=== PATIENT | female | born 1985 | race African-American/Black ===

== ENCOUNTER 2016-11-24 08:12 | Emergency (ER) | payer BC ==
[2016-11-24] MEDS ORDERED: ALBUTEROL SO4 2.5/IPRATROPIUM 0.5 INH SOL 3 ML VIAL.NEB. NEB ONE ×4 (08:17→08:35)
[2016-11-24 08:19] VITALS: BP 123/97; TEMP 98.5; BMI 33.6
[2016-11-24] MEDS ORDERED: ALBUTEROL SO4 0.083% IH SOL 2.5 MG/3 ML VIAL.NEB. NEB PRN (08:23)
[2016-11-24] MEDS ORDERED: methylPREDNISolone NA SUCC 125 MG/2 ML VIAL IVPB ONE (08:23)
--- NOTE | 2016-11-24 08:23 | PDOC ---
History of Present Illness <Gwen Emerson - Last Filed: 11/24/16 10:26> - General History Source: Patient Exam Limitations: No Limitations - History of Present Illness Initial Comments: 11/24/16 10:08 The patient is a 31 year old female, with significant past medical history of asthma (on 10mg of Singulair daily, intubated once at 4yo), Gerald parkinson white syndrome s/p ablation, who presents to the emergency room this morning complaining of shortness of breath, chest tightness, and productive cough x3 days. The patient used her inhaler this morning when she began feeling short of breath with minimal improvement. She has not used any nebulizer treatments. She notes that she has had a productive cough with green sputum, chills, and sweats over the past 3 days which she believes triggered the exacerbation this morning. The patient was hospitalized 3 times in the past for asthma exacerbation, with the most recent admission in March that was triggered by the Flu. 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 Denies fever, nausea, vomiting. Denies palpitations. Denies lightheadedness, dizziness. Allergies: NKDA, shellfish, egg Social Hx: No tobacco use. No recreational drug use. No alcohol use. Pt is followed by a claims adjuster at [facility]. <Beverly Barnes - Last Filed: 11/24/16 10:37> - General Chief Complaint: Asthma Stated Complaint: ASTHMA Time Seen by Provider: 11/24/16 08:21 Past History - Past Medical History Asthma: Yes Cardiac Disorders: Yes (WPW) Seizures: Yes - Surgical History Cardiac Surgery: Yes (ABLATION D/T WPW) - Suicide/Smoking/Psychosocial Hx Smoking History: Never smoked Have you smoked in the past 12 months: No Information on smoking cessation initiated: No Hx Alcohol Use: No Drug/Substance Use Hx: No Substance Use Type: None Hx Substance Use Treatment: No <Gwen Emerson - Last Filed: 11/24/16 10:26> <Beverly Barnes - Last Filed: 11/24/16 10:37> - Past Medical History Allergies/Adverse Reactions: Allergies Allergy/AdvReac Type Severity Reaction Status Date / Time egg Allergy Severe Verified 11/24/16 08:15 No Known Drug Allergies Allergy Verified 11/24/16 08:15 shellfish Allergy Severe anaphylaxis Uncoded 11/24/16 08:15 Review of Systems - Review of Systems Able to Perform ROS?: Yes Comments:: 11/24/16 10:09 GENERAL/CONSTITUTIONAL: +chills, +sweats. No weakness. HEAD, EYES, EARS, NOSE AND THROAT: No change in vision. No ear pain or discharge. No sore throat. GASTROINTESTINAL: No nausea, vomiting, diarrhea or constipation. GENITOURINARY: No dysuria, frequency, or change in urination. CARDIOVASCULAR: No palpitations RESPIRATORY: +SOB, +chest tightness, +productive cough, +wheezing. No hemoptysis. MUSCULOSKELETAL: No joint or muscle swelling or pain. No neck or back pain. SKIN: No rash NEUROLOGIC: No headache, vertigo, loss of consciousness, or change in strength/ sensation. ENDOCRINE: No increased thirst. No abnormal weight change. HEMATOLOGIC/LYMPHATIC: No anemia, easy bleeding, or history of blood clots. ALLERGIC/IMMUNOLOGIC: No hives or skin allergy. <Beverly Barnes - Last Filed: 11/24/16 10:37> *Physical Exam - Vital Signs Last Vital Signs Temp Pulse Resp BP Pulse Ox 98.5 F 119 H 18 123/97 99 11/24/16 08:14 11/24/16 08:14 11/24/16 08:14 11/24/16 08:14 11/24/16 08:14 <Gwen Emerson - Last Filed: 11/24/16 10:26> - Vital Signs Last Vital Signs Temp Pulse Resp BP Pulse Ox 98.5 F 119 H 18 123/97 99 11/24/16 08:14 11/24/16 08:14 11/24/16 08:14 11/24/16 08:14 11/24/16 08:14 - Physical Exam Comments: 11/24/16 10:10 GENERAL: Awake, alert, and fully oriented, in no acute distress HEAD: No signs of trauma EYES: PERRLA, EOMI, sclera anicteric, conjunctiva clear ENT: Auricles normal inspection, hearing grossly normal, nares patent, oropharynx clear without exudates. Moist mucosa NECK: Normal ROM, supple, no lymphadenopathy, JVD, or masses LUNGS: +diffuse wheezing bilaterally with fair air movement. +Tachypneic to 30. No crackles HEART: Regular rate and rhythm, normal S1 and S2, no murmurs, rubs or gallops ABDOMEN: Soft, nontender, normoactive bowel sounds. No guarding, no rebound. No masses EXTREMITIES: Normal range of motion, no edema. No clubbing or cyanosis. No cords, erythema, or tenderness BACK: No midline spinal tenderness in cervical/thoracic/lumbar region NEUROLOGICAL: Normal speech, cranial nerves intact, negative pronator drift, 5/ 5 strength in all 4 extremities, normal sensation to light touch in all 4 extremities, normal cerebellar exam, normal gait, normal reflexes and tone SKIN: Warm, Dry, normal turgor, no rashes or lesions noted. <Beverly Barnes - Last Filed: 11/24/16 10:37> ED Treatment Course - LABORATORY CBC & Chemistry Diagram: 11/24/16 08:43 11/24/16 08:43 - Medications Given in the ED: ED Medications Discontinued Medications Generic Name Dose Route Start Last Admin Trade Name [place] PRN Reason Stop Dose Admin Albuterol/Ipratropium 2 amp 11/24/16 08:21 11/24/16 08:22 Duoneb - NEB 11/24/16 08:22 2 amp NOW ONE Administration <Gwen Emerson - Last Filed: 11/24/16 10:26> - LABORATORY CBC & Chemistry Diagram: 11/24/16 08:43 11/24/16 08:43 - ADDITIONAL ORDERS Additional order review: Laboratory Results 11/24/16 11/24/16 08:51 08:43 Sodium 141 Potassium 3.9 Chloride 106 Carbon Dioxide 24 Anion Gap 11 BUN 7 D Creatinine 0.9 D Creat Clearance w eGFR > 60 Random Glucose 135 H D Calcium 8.8 Total Bilirubin 0.4 AST 15 ALT 21 Alkaline Phosphatase 90 Total Protein 7.5 Albumin 3.8 Urine HCG, Qual Negative 11/24/16 08:43 RBC 4.93 D MCV 85.1 MCHC 33.6 RDW 12.9 MPV 8.6 Neutrophils % 41.6 L Lymphocytes % 41.1 H D Monocytes % 7.6 Eosinophils % 8.3 H Basophils % 1.4 - RADIOLOGY Radiograph Interpretation: 11/24/16 10:36 EXAM#: TYPE/EXAM: RESULT: [id number] RAD/CHEST PA LAT CHEST 2 VIEWS. History. Evaluate for infiltrate Comparison study: November 04, 2005 Findings. The trachea is normal in size and is not deviated. Unremarkable contour of the cardiomediastinal silhouette. The lungs are well aerated. No evidence of airspace opacities, atelectasis, pleural effusion, or pneumothorax. No bulky hilar adenopathy is noted. Intact visualized osseous structures Intact visualized osseous structures Impression. No evidence of active pulmonary disease. Reported By: Saeid Alberto MD 11/24/16 1024 - Medications Given in the ED: ED Medications Discontinued Medications Generic Name Dose Route Start Last Admin Trade Name Freq PRN Reason Stop Dose Admin Albuterol Sulfate 1 amp 11/24/16 08:23 11/24/16 09:27 Ventolin 0.083% Nebulizer Soln - NEB 11/24/16 08:54 1 amp Q15M PRN Administration Dyspnea Albuterol/Ipratropium 2 amp 11/24/16 08:21 11/24/16 08:22 Duoneb - NEB 11/24/16 08:22 2 amp NOW ONE Administration Albuterol/Ipratropium 1 amp 11/24/16 08:23 11/24/16 08:48 Duoneb - NEB 11/24/16 08:24 1 amp ONCE ONE Administration Methylprednisolone Sodium Succinate 125 mg 11/24/16 08:23 11/24/16 08:48 Solu-Medrol - IVPB 11/24/16 08:24 125 mg ONCE ONE Administration <Beverly Barnes - Last Filed: 11/24/16 10:37> Medical Decision Making - Medical Decision Making 11/24/16 09:26 31yo F hx asthma p/w asthma exacerbation in the setting of URI vs PNA. Initial exam with peak flow of 140, diffuse wheezing, tachypnea to 30, and fair air movement. Will dose back to back nebs and steroids and reassess. -labs -UPT -CXR -reassess 11/24/16 10:31 Repeat peak flow 310. Pt feels much better, denies SOB or chest tightness. CXR negative. Flu swab negative. Repeat exam with no wheezing and good air movement. Repeat vitals: HR 95, SPO2 RA 98%, RR 20, BP 128/78. I discussed the physical exam findings, ancillary test results and final diagnoses with the patient. I answered all of the patient's questions. The patient was satisfied with the care received and felt comfortable with the discharge plan and treatment plan. The patient will call their primary care physician within 24 hours to arrange follow-up and will return to the Emergency Department with any new, persistent or worsening symptoms. <Gwen Emerson - Last Filed: 11/24/16 10:26> *DC/Admit/Observation/Transfer - Discharge Dispostion Admit: No - Attestations Physician Attestion: 11/24/16 10:35 I, Dr. Gwen Emerson MD, attest that this document has been prepared under my direction and personally reviewed by me in its entirety. I further attest, that it accurately reflects all work, treatment, procedures and medical decision -making performed by me. <Gwen Emerson - Last Filed: 11/24/16 10:26> - Attestations Scribe Attestion: 11/24/16 10:10 Documentation prepared by MARLON Covarrubias, acting as biomedical field service engineer for Gwen Emerson MD. <Beverly Barnes - Last Filed: 11/24/16 10:37> Diagnosis at time of Disposition: Asthma Qualifiers: Asthma severity: unspecified severity Asthma complication type: uncomplicated Qualified Code(s): J45.909 - Unspecified asthma, uncomplicated - Discharge Dispostion Disposition: HOME Condition at time of disposition: Stable - Patient Instructions Printed Discharge Instructions: Asthma -- Adult Additional Instructions: Please use your nebulizer machine every 2 hours as needed for asthma symptoms. Please see your primary care doctor within 1 week. Return to the emergency department immediately for any new or concerning symptoms or if your symptoms get worse. Thank you for coming to the Emergency Department today for your care. It was a pleasure to see you today. Please note that your evaluation is INCOMPLETE until you follow-up with your doctor.
[2016-11-24] MEDS ORDERED: methylPREDNISolone NA SUCC 125 MG/2 ML VIAL ONE (08:43)
[2016-11-24 08:54] LABS: BASOPHIL 1.4 % (0-2.0); EOSINOPHIL 8.3 % (0-4.5); MCH 28.6 pg (25.7-33.7); MCHC 33.6 g/dl (32.0-36.0); MEAN CELL VOLUME 85.1 fl (80-96); MEAN PLT VOLUME 8.6 fl (7.5-11.1); NEUTROPHILS 41.6 % (42.8-82.8); PLATELET COUNT 239 K/MM3 (134-434); RDW 12.9 % (11.6-15.6); WHITE BLOOD COUNT 4.6 K/mm3 (4.0-10.0)
[2016-11-24 09:25] LABS: ALBUMIN 3.8 g/dl (3.4-5.0); ALK PHOS 90 U/L (45-117); ANION GAP 11 (8-16); BILIRUBIN,TOTAL 0.4 mg/dL (0.2-1.0); CALCIUM 8.8 mg/dL (8.5-10.1); CO2 24 mmol/L (21-32); CREATININE 0.9 mg/dL (0.55-1.02); GLUCOSE,RANDOM 135 mg/dL (74-106); SGOT/AST 15 U/L (15-37); SGPT/ALT 21 U/L (12-78); TOT PROT 7.5 g/dl (6.4-8.2)
[2016-11-24 10:53] VITALS: PULSE 108
== END 2016-11-24 10:52 | disposition home or self-care (01) ==
LOC: JER 08:12
PROC: 3E0F7GC Introduction of Other Therapeutic Substance into Respiratory Tract, Via Natural or Artificial Opening (ICD-10-PCS; principal; 2016-11-24)
PROC: 3E0F7GC Introduction of Other Therapeutic Substance into Respiratory Tract, Via Natural or Artificial Opening (ICD-10-PCS; 2016-11-24)
PROC: 3E0F7GC Introduction of Other Therapeutic Substance into Respiratory Tract, Via Natural or Artificial Opening (ICD-10-PCS; 2016-11-24)
PROC: 3E0333Z Introduction of Anti-inflammatory into Peripheral Vein, Percutaneous Approach (ICD-10-PCS; 2016-11-24)
DX: J45.901 Unspecified asthma with (acute) exacerbation (principal)
CPT/HCPCS: 36415; 71020-TC; 80053; 84703; 85025; 87804; 99282-25

== ENCOUNTER 2017-07-09 08:27 | Emergency (ER) | payer BC ==
[2017-07-09 08:39] VITALS: BMI 33.3
[2017-07-09] MEDS ORDERED: methylPREDNISolone NA SUCC 125 MG/2 ML VIAL IVPB ONE (08:47)
[2017-07-09] MEDS ORDERED: MAGNESIUM SULF 50% (8.12 MEQ/2 ML-1 GM VIAL) IVPB ONE (08:47)
[2017-07-09] MEDS ORDERED: ALBUTEROL SO4 0.083% IH SOL 2.5 MG/3 ML VIAL.NEB. NEB ONE (08:47)
[2017-07-09] MEDS ORDERED: ALBUTEROL SO4 2.5/IPRATROPIUM 0.5 INH SOL 3 ML VIAL.NEB. NEB ONE (08:52)
[2017-07-09] MEDS ORDERED: MAGNESIUM SULF 50% (8.12 MEQ/2 ML-1 GM VIAL) ONE ×2 (08:52→09:14)
[2017-07-09] MEDS ORDERED: methylPREDNISolone NA SUCC 125 MG/2 ML VIAL ONE (08:52)
[2017-07-09] MEDS ORDERED: ACETAMINOPHEN 1000 MG/100 ML VIAL (NON FORMULARY) IVPB ONE (09:15)
[2017-07-09 09:18] LABS: HEMATOCRIT 40.5 % (32.4-45.2); MCH 29.5 pg (25.7-33.7); MCHC 34.5 g/dl (32.0-36.0); MEAN CELL VOLUME 85.6 fl (80-96); MEAN PLT VOLUME 8.2 fl (7.5-11.1); PLATELET COUNT 254 K/MM3 (134-434); RBC 4.73 M/mm3 (3.60-5.2); RDW 13.4 % (11.6-15.6); WHITE BLOOD COUNT 4.2 K/mm3 (4.0-10.0)
[2017-07-09] MEDS ORDERED: ACETAMINOPHEN INJECTION 100 ML IVPB ONE (09:33)
[2017-07-09 09:41] LABS: ANION GAP 7 (8-16); BILIRUBIN,TOTAL 0.5 mg/dL (0.2-1.0); BLOOD UREA NITROGEN 9 mg/dL (7-18); CALCIUM 9.2 mg/dL (8.5-10.1); CHLORIDE 106 mmol/L (98-107); CO2 26 mmol/L (21-32); CREATININE 0.9 mg/dL (0.55-1.02); GLUCOSE,RANDOM 88 mg/dL (74-106); SGPT/ALT 24 U/L (12-78); SODIUM 139 mmol/L (136-145); TOT PROT 8.1 g/dl (6.4-8.2)
[2017-07-09 09:42] LABS: ALK PHOS 92 U/L (45-117)
[2017-07-09 09:44] LABS: POTASSIUM 5.6 mmol/L (3.5-5.1)
[2017-07-09 09:45] LABS: SGOT/AST 37 U/L (15-37)
--- NOTE | 2017-07-09 09:52 | PDOC ---
Attending Attestation - HPI HPI: 07/09/17 10:03 The patient is a 31 year old female with a significant PMH of asthma(intubated at 4 years old) and yael parkinson white syndrome who presents to the emergency department with 3 days of increased wheezing coughing and vomiting. The patient reports that she has been experiencing associated chest pain with her increased wheezing, coughing and vomiting. The patient reports that she took her nebulizer last night but her symptoms have worsened. She reports that her albuterol ran out last night. The patient reports that this episode is usually triggered by allergies, exercise or just while at rest. The patient denies any headache or dizziness. She denies any fever, chills, nausea,diarrhea and constipation. The patient denies any urinary symptoms. The patient denies any other complaints. - Physicial Exam PE: 07/09/17 10:03 Vitals: Triage vital signs reviewed General Appearance: No acute distress, well nourished, well developed Head: Atraumatic Throat: Posterior oropharynx without erythema, mucous membranes moist Neck: Supple; No nuchal rigidity Chest Wall: Nontender Cardiac: Regular rate and rhythm, no murmurs, no rubs, no gallops Lungs: (+) bilateral wheezing. good air movement bilaterally Abdomen: Soft, nondistended, normal bowel sounds, nontender to palpation Genitourinary: Rectal: Exam deferred Extremities: Full range of motion to all extremities, no cyanosis, clubbing, or edema Skin: Warm and dry, no rashes or lesions, no rash, no petechiae - Medical Decision Making 07/09/17 10:04 Initial assessment: The patient is a 31 year old female with a significant PMH of asthma(intubated at 4 years old) and yael parkinson white syndrome who presents to the emergency department with 3 days of increased wheezing coughing and vomiting the patient will be given a chest x ray, medication and monitored. Documentation prepared by Tisha Mike, acting as medical research assistant for Suleiman Gutierrez MD. <Tisha Mike - Last Filed: 07/09/17 10:03> - Resident Resident Name: Hipolito Boyd - ED Attending Attestation I have performed the following: I have examined & evaluated the patient, The case was reviewed & discussed with the resident, I agree w/resident's findings & plan, Exceptions are as noted - Medical Decision Making 31 years old with moderate asthma exacerbation Wheezing bilaterally on examination Treat with nebs steroids magnesium observe and reassess. Reevaluation: Patient feels much better after treatment. No longer wheezing. We' ll discharge home on short course of prednisone with primary care follow-up Findings, need for follow-up and strict return instructions discussed with patient. <Suleiman Gutierrez - Last Filed: 07/09/17 13:24>
[2017-07-09] MEDS ORDERED: SODIUM CHLORIDE 1,000 ML IV STA (09:58)
[2017-07-09] MEDS ORDERED: KETOROLAC TROMETHAMINE 30 MG/1 ML VIAL IVPUSH ONE (09:58)
--- NOTE | 2017-07-09 10:08 | PDOC ---
History of Present Illness - General Chief Complaint: Shortness of Breath Stated Complaint: BACK PAIN, SOB Time Seen by Provider: 07/09/17 08:40 History Source: Patient Exam Limitations: No Limitations - History of Present Illness Initial Comments: 07/09/17 10:10 Patient is a 31F with history of asthma (intubation at 4 years old, several prior hospitalizations) and WPW s/p ablation here today complaining of shortness of breath and back pain. Patient states that she's had a cough and rhinorrhea for the past several days, with shortness of breath for the past three. Patient states that she had a severe episode of coughing that led her to vomit two days ago, after vomiting she reports pain in her lower left back. Denies chest pain. Endorses chills. Denies IVDU, significant medical history, problems with urination. Patient states that she presented today because she ran out of her albuterol at home. Past History - Past Medical History Allergies/Adverse Reactions: Allergies Allergy/AdvReac Type Severity Reaction Status Date / Time egg Allergy Severe Verified 07/09/17 08:31 No Known Drug Allergies Allergy Verified 07/09/17 08:31 shellfish Allergy Severe anaphylaxis Uncoded 07/09/17 08:31 Home Medications: Ambulatory Orders Prednisone [Prednisone 50 MG TABLETS] 50 mg PO DAILY #4 tablet 11/24/16 Albuterol 0.083% Nebulizer Viki [Ventolin 0.083% Nebulizer Soln -] 1 amp NEB TID PRN #21 amp 07/09/17 Prednisone [Prednisone 50 MG TABLETS] 50 mg PO DAILY #4 tablet 07/09/17 Asthma: Yes Cardiac Disorders: Yes (WPW) COPD: No Seizures: Yes - Surgical History Cardiac Surgery: Yes (ABLATION D/T WPW) - Suicide/Smoking/Psychosocial Hx Smoking History: Never smoked Have you smoked in the past 12 months: No Information on smoking cessation initiated: No Hx Alcohol Use: No Drug/Substance Use Hx: No Substance Use Type: None Hx Substance Use Treatment: No Review of Systems - Review of Systems Able to Perform ROS?: Yes Comments:: 07/09/17 10:19 GENERAL/CONSTITUTIONAL: No fever. Positive for chills. No weakness. HEAD, EYES, EARS, NOSE AND THROAT: No change in vision. No sore throat. CARDIOVASCULAR: Positive for chest pain and shortness of breath RESPIRATORY: Positive for cough, wheezing. Negative for hemoptysis. GASTROINTESTINAL: Positive for nausea, vomiting. Negative for diarrhea and constipation. GENITOURINARY: No dysuria, frequency, or change in urination. MUSCULOSKELETAL: No joint or muscle swelling or pain. Positive for lower back pain. SKIN: No rash NEUROLOGIC: No headache, vertigo, loss of consciousness, or change in strength/ sensation. HEMATOLOGIC/LYMPHATIC: No anemia, easy bleeding, or history of blood clots. ALLERGIC/IMMUNOLOGIC: No hives or skin allergy. *Physical Exam - Vital Signs Last Vital Signs Temp Pulse Resp BP Pulse Ox 98.2 F 105 H 22 121/76 100 07/09/17 08:33 07/09/17 08:33 07/09/17 08:33 07/09/17 08:33 07/09/17 08:33 - Physical Exam Comments: 07/09/17 9:30 GENERAL: Awake, alert, and fully oriented, in moderate distress HEAD: No signs of trauma, normocephalic, atraumatic EYES: PERRLA, EOMI, sclera anicteric, conjunctiva clear ENT: Auricles normal inspection, hearing grossly normal, nares patent, oropharynx clear without exudates. Moist mucosa NECK: Normal ROM, supple, no lymphadenopathy, JVD, or masses LUNGS: Sitting upright, shallow breaths, wheezes bilaterally, decreased lung movement HEART: Regular rate and rhythm, normal S1 and S2, no murmurs, rubs or gallops, peripheral pulses normal and equal bilaterally. ABDOMEN: Soft, nontender, normoactive bowel sounds. No guarding, no rebound. No masses EXTREMITIES: Normal inspection, Normal range of motion, no edema. No clubbing or cyanosis. NEUROLOGICAL: Cranial nerves II through XII grossly intact. Normal speech, no focal sensorimotor deficits SKIN: Warm, Dry, normal turgor, no rashes or lesions noted. BACK: Tender to palpation on right lateral lower back, no midline tenderness ED Treatment Course - LABORATORY CBC & Chemistry Diagram: 07/09/17 09:10 07/09/17 09:10 - ADDITIONAL ORDERS Additional order review: Laboratory Results 07/09/17 07/09/17 09:10 09:10 Sodium 139 Potassium 5.6 H Chloride 106 Carbon Dioxide 26 Anion Gap 7 L BUN 9 Creatinine 0.9 Creat Clearance w eGFR > 60 Random Glucose 88 Calcium 9.2 Total Bilirubin 0.5 D AST 37 ALT 24 Alkaline Phosphatase 92 Total Protein 8.1 Albumin 4.0 Urine HCG, Qual Negative 07/09/17 09:10 RBC 4.73 MCV 85.6 MCHC 34.5 RDW 13.4 MPV 8.2 Neutrophils % No Result Required. Lymphocytes % No Result Required. - RADIOLOGY Radiology Studies Ordered: Category Date Time Status CHEST X-RAY PORTABLE* [RAD] Stat Radiology 07/09/17 08:48 Taken - Medications Given in the ED: ED Medications Discontinued Medications Generic Name Dose Route Start Last Admin Trade Name Nitesh PRN Reason Stop Dose Admin Acetaminophen 1,000 mg 07/09/17 09:15 07/09/17 09:33 Ofirmev Injection - IVPB 07/09/17 09:16 1,000 mg ONCE ONE Administration Albuterol Sulfate 3 amp 07/09/17 08:47 07/09/17 08:53 Ventolin 0.083% Nebulizer Soln - NEB 07/09/17 08:48 3 amp ONCE ONE Administration Magnesium Sulfate 2 gm 07/09/17 08:47 07/09/17 09:26 Magnesium Sulfate IVPB 07/09/17 08:48 2 gm ONCE ONE Administration Methylprednisolone Sodium Succinate 125 mg 07/09/17 08:47 07/09/17 09:06 Solu-Medrol - IVPB 07/09/17 08:48 125 mg ONCE ONE Administration Medical Decision Making - Medical Decision Making 07/09/17 9:45 Patient is a 31F with history of asthma and wpw s/p ablation here today with asthma exacerbation and back pain. Vital signs notable for tachycardia. Patient in moderate respiratory distress with decreased breath sounds. Given 3 duonebs, 2mg mag, 125 mg solumedrol. Will evaluate further with cbc, cmp, cxr. Given tylenol for back pain. 07/09/17 10:07 Patient reassessed after duonebs, steroids and mag. Patient reports breathing is much better, still complaining of back pain. Giving liter of fluid and toradol. CBC, CMP reassuring. CXR shows no acute cardiopulmonary process. 07/09/17 11:08 Patient reassessed, breathing remains much improved, stable to go home. Back pain still present, but tolerable. Patient able to move and walk. Will discharge with return precautions. Steroids and nebulizer solution sent to patient's pharmacy. Instructed to call PCP today to set new appointment. *DC/Admit/Observation/Transfer Diagnosis at time of Disposition: Asthma exacerbation, Back pain - Discharge Dispostion Disposition: HOME Condition at time of disposition: Good Decision to Admit order: No - Prescriptions Prescriptions: Albuterol 0.083% Nebulizer Viki [Ventolin 0.083% Nebulizer Soln -] 1 amp NEB TID PRN #21 amp PRN Reason: Wheezing Prednisone [Prednisone 50 MG TABLETS] 50 mg PO DAILY #4 tablet - Referrals Referrals: Bhavya Peraza MD [Primary Care Provider] - - Patient Instructions Printed Discharge Instructions: DI for Asthma -- Adult, DI for Low Back Pain Additional Instructions: Please return if you have any new, worsening or concerning symptoms. You were prescribed steroids and more of your albuterol solution to take at home. These have been sent to your pharmacy. Please call your primary care physician to set up an appointment for follow up. For your back pain, please take tylenol 650mg up to 4 times per day and/or ibuprofen 400mg up to 3 times per day as you need for pain. - Post Discharge Activity Forms/Work/School Notes: Back to Work
[2017-07-09] MEDS ORDERED: KETOROLAC TROMETHAMINE 30 MG/1 ML VIAL ONE (10:31)
[2017-07-09 11:05] LABS: PLATELET ESTIMATE NORMAL
[2017-07-09 11:35] VITALS: BP 109/54; PULSE 97; TEMP 97.8
== END 2017-07-09 11:35 | disposition home or self-care (01) ==
LOC: JER 08:27
PROC: 3E0F7GC Introduction of Other Therapeutic Substance into Respiratory Tract, Via Natural or Artificial Opening (ICD-10-PCS; principal; 2017-07-09)
PROC: 3E033GC Introduction of Other Therapeutic Substance into Peripheral Vein, Percutaneous Approach (ICD-10-PCS; 2017-07-09)
PROC: 3E0333Z Introduction of Anti-inflammatory into Peripheral Vein, Percutaneous Approach (ICD-10-PCS; 2017-07-09)
PROC: 3E0333Z Introduction of Anti-inflammatory into Peripheral Vein, Percutaneous Approach (ICD-10-PCS; 2017-07-09)
DX: J45.901 Unspecified asthma with (acute) exacerbation (principal); M54.89 Other dorsalgia; I45.6 Pre-excitation syndrome
CPT/HCPCS: 36415; 71045-TC-FY; 80053; 84703; 85025; 99284-25; J0131; J7030